=== PATIENT | male | born 1945 | race Caucasian/White ===

== ENCOUNTER 2018-11-06 10:09 | Day surgery (SDC) | payer BC ==
[2018-11-06] MEDS ORDERED: PROPOFOL 10 MG/ML VIAL IV ONE (10:10)
[2018-11-06] MEDS ORDERED: FENTANYL PF 100MCG/2ML VIAL IV ONE (10:10)
[2018-11-06] MEDS ORDERED: LIDOCAINE 2% MDV (20MG/ML) 20ML VIAL IV ONE (10:10)
--- NOTE | 2018-11-07 07:12 | Operative Note ---
OPERATION: ESOPHAGOGASTRODUODENOSCOPY. PREOPERATIVE DIAGNOSES: 1. Chronic heartburn. 2. Hematochezia. 3. History of polyp. POSTOPERATIVE DIAGNOSES: 1. Normal upper endoscopy. 2. Sigmoid colon polyp. 3. Ascending colon polyps x2. 4. Sigmoid diverticulosis. 5. Internal hemorrhoids. PROCEDURE: After informed consent was obtained from the patient, he was placed in the left lateral decubitus position in the endoscopy suite, sedated and monitored by the department of anesthesia. A well-lubricated [id number] gastroscope was placed in the posterior oropharynx under direct visualization and passed to the proximal, mid, and distal esophagus. The GE junction and esophagus were unremarkable. No ulcers, erosions, strictures, mass lesions, or changes suggestive of Pugh's were seen. The gastric body, antrum, pylorus, duodenal bulb, and sweep were unremarkable as well. J-turn views of the proximal stomach revealed no abnormality. The endoscope was straightened. The esophagus was once again inspected in retrograde fashion with no new findings or abnormalities were identified. RECOMMENDATIONS: Would continue the patient's current medications. Will proceed with colonoscopy. As always, thank you for allowing me to participate in the healthcare of your patients. SAUD
--- NOTE | 2018-11-07 07:12 | Operative Note ---
OPERATION: COLONOSCOPY with cold forceps and cold snare polypectomies. PREOPERATIVE DIAGNOSES: 1. Hematochezia. 2. History of colon polyps. POSTOPERATIVE DIAGNOSES: 1. Ascending colon polyp x2. 2. Sigmoid colon polyp x1. 3. Sigmoid diverticulosis. 4. Hemorrhoids. PROCEDURE: After informed consent was obtained from the patient, he was placed in the left lateral decubitus position in the endoscopy suite, sedated and monitored by the department of anesthesia. Digital rectal exam was unremarkable. A well-lubricated [id number] colonoscope was inserted into the rectum and advanced to the cecum. The cecum and cecal bulb were unremarkable. The ascending colon revealed 2 diminutive polyps each removed with a cold forceps. The remainder of the ascending colon was otherwise unremarkable. The transverse colon and descending colon were unrevealing. The sigmoid colon demonstrated scattered diverticula. There was also noted to be a 5 mm polyp that was in the sigmoid colon removed with a cold snare. The remainder of the sigmoid colon and rectum were otherwise unremarkable other than the aforementioned sigmoid diverticula. J-turn views of the anorectum revealed internal hemorrhoids. The endoscope was straightened, the rectal ampulla deflated, and the endoscope was removed. RECOMMENDATIONS: I would suggest the patient follow a high-fiber diet and continue his current medical program. He should undergo repeat colonoscopy in 3- 5 years pending tissue histology. As always, thank you for allowing me to participate in the healthcare of your patients. SAUD
== END 2018-11-06 11:25 | disposition home or self-care (01) ==
LOC: HOP 10:09
PROVIDERS: ATTEND Internal Medicine Gastroenterology
DX: K92.2 Gastrointestinal hemorrhage, unspecified (principal); K92.1 Melena; Z86.010 Personal history of colon polyps; D12.2 Benign neoplasm of ascending colon; D12.5 Benign neoplasm of sigmoid colon; K64.9 Unspecified hemorrhoids; R12 Heartburn; K21.9 Gastro-esophageal reflux disease without esophagitis; I10 Essential (primary) hypertension; E78.00 Pure hypercholesterolemia, unspecified; M10.9 Gout, unspecified